=== PATIENT | female | born 1970 | race Hispanic/Latino ===

== ENCOUNTER 2017-06-19 06:47 | Day surgery (SDC) | payer OTHER ==
[2017-06-13 13:04] LABS: BASOPHILS % (AUTO) 0.4 % (0.0-5.0); EOSINOPHILS % (AUTO) 4.7 % (0.0-8.0); LYMPHOCYTES % (AUTO) 34.6 % (21.0-51.0); MEAN CORPUSCULAR HEMOGLOBIN 29.6 pg (27.0-33.0); MEAN CORPUSCULAR VOLUME 89.7 fL (79-99); MONOCYTES % (AUTO) 6.6 % (3.0-13.0); NEUTROPHILS % (AUTO) 53.7 % (40.0-77.0); PLATELET COUNT (AUTO) 235 K/uL (130-400); RED BLOOD CELL COUNT(AUTO) 4.01 MIL/uL (4.00-5.50); RED CELL DISTRIBUTION WIDTH 15.7 % (11.0-15.5); WHITE BLOOD COUNT (AUTO) 6.1 K/uL (4.8-10.8)
[2017-06-13 13:10] VITALS: BP 110/60
[~2017-06-19] VITALS: Ht 167.6 cm; Wt 118.8 kg
[2017-06-19] VITALS (14 sets, daily range): BP systolic 108–129; BP diastolic 65–76
[~2017-06-19 06:47] MED LIST: CALDOLOR 800MG+NS 250ML 250 ML IV SCH; CEFAZOLIN SODIUM 1 GM VIAL IVP SCH; LACTATED RINGERS 1000ML 1,000 ML IV SCH
[2017-06-19] MEDS ORDERED: WATER FOR INJECTION,STERILE 20 ML VIAL ONE (07:31)
[2017-06-19] MEDS ORDERED: CEFAZOLIN SODIUM 1 GM VIAL ONE (07:31)
[2017-06-19] MEDS ORDERED: CALDOLOR 800MG+NS 250ML 250 ML IV ONE (07:32)
[2017-06-19] MEDS ORDERED: LIDOCAINE PF 2% 5ML ABBOJECT ONE (07:52)
[2017-06-19] MEDS ORDERED: ONDANSETRON HCL 4 MG/2 ML VIAL ONE (07:52)
[2017-06-19] MEDS ORDERED: DEXAMETHASONE SOD PHOSPHATE 10MG/ML 1ML VIAL ONE (07:52)
[2017-06-19] MEDS ORDERED: NEOSTIGMINE METHYLSULFATE 1MG/ML IV ONE (07:52)
[2017-06-19] MEDS ORDERED: PHENYLEPHRINE HCL 10 MG/ML 1ML VIAL IV ONE (07:52)
[2017-06-19] MEDS ORDERED: LIDOCAINE HCL 4% LTA SOL 4 ML VIAL ONE (07:52)
[2017-06-19] MEDS ORDERED: ROCURONIUM BROMIDE 10MG/1ML 5ML VL ONE (07:52)
[2017-06-19] MEDS ORDERED: LIDOCAINE HCL-MPF 1% 5ML AMP IJ ONE (07:52)
[2017-06-19] MEDS ORDERED: GLYCOPYRROLATE 0.2 MG/ML 5 ML VIAL ONE (07:52)
[2017-06-19] MEDS ORDERED: LIDOCAINE HCL 2% JELLY 5 ML ONE (07:52)
[2017-06-19] MEDS ORDERED: SODIUM CHLORIDE 0.9% 10 ML VIAL ONE (07:52)
[2017-06-19] MEDS ORDERED: FENTANYL CITRATE PF 50 MCG/1 ML 2ML VIAL ONE (07:53)
[2017-06-19] MEDS ORDERED: MIDAZOLAM HCL 1 MG/ML 2ML VIAL ONE (07:53)
[2017-06-19] MEDS ORDERED: PROPOFOL 10 MG/ML 20ML VIAL IV ONE ×2 (07:53→09:51)
[2017-06-19] MEDS ORDERED: CEFAZOLIN SODIUM 1 GM VIAL IVP ONE ×2 (09:06→09:10)
[2017-06-19] MEDS ORDERED: OCTYL 2-CYANOACRYLATE 1 EACH TP ONE (09:41)
[2017-06-19] MEDS ORDERED: MEPERIDINE-PF 25 MG/ML SYG ONE ×2 (10:07→10:18)
== END 2017-06-19 11:35 | disposition home or self-care (01) ==
LOC: DAH 06:47
DX: Z15.02 Genetic susceptibility to malignant neoplasm of ovary (principal); I10 Essential (primary) hypertension; E66.01 Morbid (severe) obesity due to excess calories; Z80.41 Family history of malignant neoplasm of ovary; Z90.710 Acquired absence of both cervix and uterus; Z98.890 Other specified postprocedural states; Z98.84 Bariatric surgery status; Z90.721 Acquired absence of ovaries, unilateral
CPT/HCPCS: 36415 ×2; 49320; 85025; 86850 ×2; 86900 ×2; 86901 ×2; A4215; A4344; A4351; C1769 ×2; J0690 ×3; J1100; J1741; J2001; J2175 ×2; J2250; J2370; J2405; J2704 ×2; J2710; J3010; J3490 ×3; J7030; J7120